=== PATIENT | male | born 1995 | race Caucasian/White ===

== ENCOUNTER 2020-01-31 17:31 | Emergency (ER) | payer SELFPAY ==
[~2020-01-31] VITALS: Ht 182.9 cm; Wt 90.0 kg
[~2020-01-31 17:31] MED LIST: AMOXICILLIN500 MG OR; CARAFATE OR; CONCERTA36 MG OR; CONCERTA36 MG PO; INTUNIV3 MG OR; PERCOCET 5/325M1 TAB PO; RANITIDINE75 M1 OR; RISPERIDONE4 MG PO; SEROQUEL100 MG PO; SEROQUEL200 MG PO; SILVADENE1 % EX; TRAMADOL HYDROC50 MG PO; TRAZODONE50 MG PO; ULTRAM50 MG PO; ZOFRAN4 MG/TAB PO
[2020-01-31 18:42] LABS: HEMATOCRIT 45.8 % (39.0-50.0); HEMOGLOBIN 15.6 g/dl (14.0-18.0); IMMATURE GRANULOCYTES 0.3 % (0.0-5.0); MEAN CORPUSCULAR HGB 31.9 pG CALC (26.0-32.0); MEAN CORPUSCULAR HGB CONC 34.1 g/dL CAL (32.0-36.0); NEUT# 5.57 thou/uL (1.82-7.42); RED BLOOD COUNT 4.89 mill/uL (4.70-6.10); RED CELL DISTRI WIDTH 12.5 % (11.5-15.5)
[2020-01-31 18:45] LABS: MEAN CELL VOLUME 93.7 fL CALC (80.0-100.0)
[2020-01-31 19:05] LABS: ALBUMIN 4.6 g/dL (3.2-5.0); ALKALINE PHOSPHATASE 85 u/l (38-126); BUN 15 mg/dL (9-20); BUN/CREATININE RATIO 18 (12-20 (CALC)); CARBON DIOXIDE 30 mmol/l (22-30); CHLORIDE 103 mmol/l (95-108); CREATININE 0.9 mg/dL (0.7-1.3); GFR > 60 ML/MIN (>=60 (CALC)); GFR FOR AFR.AMER. > 60 ML/MIN (>=60 (CALC)); SGOT/AST 27 u/l (17-59); SODIUM 138 mmol/l (137-146); TOTAL PROTEIN 7.5 g/dL (6.3-8.2)
[2020-01-31 19:06] LABS: ANION GAP 9 (6-22 (CALC)); POTASSIUM 4.1 mmol/l (3.5-5.1)
[2020-01-31] MEDS ORDERED: PREVACID30 M3 PO (20:37)
[2020-01-31 20:48] VITALS: BP 127/76
== END 2020-01-31 20:48 | disposition home or self-care (01) | DRG 379 ==
LOC: ED 17:31
PROVIDERS: Family Medicine
DX: K92.1 Melena (principal); F17.200 Nicotine dependence, unspecified, uncomplicated
CPT/HCPCS: Q9967

== ENCOUNTER 2021-02-09 18:48 | Emergency (ER) | payer SELFPAY ==
[~2021-02-09] VITALS: Ht 182.9 cm; Wt 82.0 kg
[~2021-02-09 18:48] MED LIST changes: +PREVACID30 M3 PO
[2021-02-09 19:52] LABS: URINE BILIRUBIN - DIPSTICK NEGATIVE (NEGATIVE); URINE BLOOD DIPSTICK NEGATIVE (NEGATIVE); URINE COLOR YELLOW; URINE GLUCOSE - DIPSTICK NEGATIVE (NEGATIVE); URINE KETONE NEGATIVE (NEGATIVE); URINE LEUK ESTERASE NEGATIVE (NEGATIVE); URINE PROTEIN - DIPSTICK NEGATIVE (NEG-TRACE); URINE SPECIFIC GRAVITY 1.015; URINE UROBILINOGEN - DIPSTICK 0.2 E.U./dL (0.2)
[2021-02-09 19:54] LABS: URINE NITRITE - DIPSTICK NEGATIVE (Negative)
[2021-02-09 20:17] LABS: HEMATOCRIT 47.3 % (39.0-50.0); IMMATURE GRANULOCYTES 0.5 % (0.0-5.0); MEAN CELL VOLUME 91.8 fL CALC (80.0-100.0); MEAN CORPUSCULAR HGB 31.1 pG CALC (26.0-32.0); MEAN CORPUSCULAR HGB CONC 33.8 g/dL CAL (32.0-36.0); NEUT# 5.98 thou/uL (1.82-7.42); RED BLOOD COUNT 5.15 mill/uL (4.70-6.10)
[2021-02-09 20:33] LABS: ALBUMIN 4.6 g/dL (3.2-5.0); ALKALINE PHOSPHATASE 74 u/l (38-126); ANION GAP 11 (6-22 (CALC)); BILIRUBIN, TOTAL 0.7 mg/dL (0.0-1.4); BUN 12 mg/dL (9-20); BUN/CREATININE RATIO 16 (12-20 (CALC)); CARBON DIOXIDE 29 mmol/l (22-30); CHLORIDE 103 mmol/l (95-108); CREATININE 0.8 mg/dL (0.7-1.3); ETHYL ALCOHOL 0 mg/dl (0-30); GFR > 60 ML/MIN (>=60 (CALC)); GFR FOR AFR.AMER. > 60 ML/MIN (>=60 (CALC)); MAGNESIUM 1.6 mg/dL (1.6-2.3); SGOT/AST 25 u/l (17-59); SODIUM 140 mmol/l (137-146); TOTAL PROTEIN 7.6 g/dL (6.3-8.2)
[2021-02-09 23:35] VITALS: BP 122/68
== END 2021-02-09 22:41 | disposition designated cancer center or children's hospital (05) | DRG 880 ==
LOC: ED 18:48
PROVIDERS: Family Medicine
DX: R45.851 Suicidal ideations (principal); F32.A Depression, unspecified; F17.210 Nicotine dependence, cigarettes, uncomplicated; Z72.89 Other problems related to lifestyle

== ENCOUNTER 2022-03-14 11:38 | Emergency (ER) | payer SELFPAY ==
[~2022-03-14] VITALS: Ht 182.9 cm; Wt 84.0 kg
[2022-03-14] MEDS ORDERED: TAM75CAP PO (15:05)
[2022-03-14 15:11] VITALS: BP 157/77
== END 2022-03-14 15:19 | disposition home or self-care (01) | DRG 153 ==
LOC: ED 11:38
DX: J11.1 Influenza due to unidentified influenza virus with other respiratory manifestations (principal); R05.9 Cough, unspecified